=== PATIENT | male | born 1990 | race Caucasian/White ===

== ENCOUNTER 2025-05-04 08:30 | Emergency (ER) | payer SELFPAY ==
[~2025-05-04] VITALS: Ht 175.3 cm; Wt 97.5 kg
[2025-05-04 09:06] LABS: BASOPHILS % 0.4 % (0.0-1.0); EOSINOPHILS % 0.8 % (0.0-6.0); LYMPHOCYTES % 10.7 % (18.0-39.1); MONOCYTES % 5.9 % (4.4-11.3); NEUTROPHILS % 81.8 % (38.7-80.0); RED CELL DISTRIBUTION WIDTH 13.2 % (11.7-14.4)
[2025-05-04] MEDS: ONDANSETRON HCL INJ 2MG/ML 2ML 2 MG/ML VIAL IV STA (09:23)
[2025-05-04] MEDS: KETOROLAC TROMETHAMINE 30 MG/ML VIAL IV STA (09:25)
[2025-05-04] MEDS: SODIUM CHLORIDE 0.9% 1000ML 1,000 ML IV STA (09:25)
[2025-05-04] MEDS: Morphine 4mg INJECTION 4 MG/ML INJ IV STA (09:25)
[2025-05-04 09:29] LABS: INR 1.02
[2025-05-04 09:48] LABS: EST GLOMERULAR FILTRATION RATE 92.0 ML/MIN (>=60)
[2025-05-04] MEDS ORDERED: IOPAMIDOL 370 MG/ML 100 ML INFUS..BTL INJ ONE (09:57)
[2025-05-04] MEDS: DIPHENHYDRAMINE HCL INJ 50 MG/ML VIAL IV ONE (11:26)
[2025-05-04] MEDS: METOCLOPRAMIDE HCL 10 MG/2ML VIAL IV ONE (11:27)
[2025-05-04] MEDS ORDERED: ULTRAM 50MG50 MG PO (12:26)
[2025-05-04] MEDS ORDERED: REGLAN5 MG PO (12:26)
[2025-05-04] MEDS ORDERED: PANTOPRAZOLE SO40 MG PO (12:28)
[2025-05-04 12:40] VITALS: PULSE 86; RESP 16; TEMP 98.2; O2SAT 100
== END 2025-05-04 12:41 | disposition home or self-care (01) ==
LOC: ER 08:33
DX: S06.0XAA Concussion with loss of consciousness status unknown, initial encounter (principal); H11.33 Conjunctival hemorrhage, bilateral; R56.9 Unspecified convulsions; W18.2XXA Fall in (into) shower or empty bathtub, initial encounter; Y93.E1 Activity, personal bathing and showering; Y92.89 Other specified places as the place of occurrence of the external cause
CPT/HCPCS: 36415; 70450; 71260; 72125; 74177; 80053; 84484; 85025; 85610; 85730; 93005; 99284; J1200; J1885; J2270; J2405; J2470; J2765; J7030; Q9967